=== PATIENT | female | born 1965 | race American Indian/Alaskan Native ===

== ENCOUNTER 2017-12-06 09:09 | Outpatient (CLI) | payer MEDICAID ==
--- NOTE | 2017-12-06 10:43 | XRay Report ---
LEFT KNEE, 2 views: History: Knee pain. The bony architecture is intact without evidence of fracture or dislocation. No significant soft tissue abnormality is seen. IMPRESSION: Normal left knee.
--- NOTE | 2017-12-06 10:43 | XRay Report ---
LEFT SHOULDER: History: Left shoulder pain. Routine views demonstrate normal bony and soft tissue structures with normal joint alignment of the shoulder. IMPRESSION: Normal study.
--- NOTE | 2017-12-06 10:44 | XRay Report ---
Bilateral HAND, 2 views: History: Hand pain. The bony architecture is intact. Bony alignment is normal. No soft tissue abnormalities are seen. The joint spaces appear preserved. IMPRESSION: Unremarkable bilateral hands.
== END 2017-12-06 09:10 | disposition home or self-care (01) ==
LOC: XRAY 09:09
PROVIDERS: ATTEND Physical Medicine & Rehabilitation
DX: M75.42 Impingement syndrome of left shoulder (principal); M25.562 Pain in left knee; M79.642 Pain in left hand; M79.641 Pain in right hand